=== PATIENT | female | born 1980 | race Caucasian/White ===

== ENCOUNTER → 2017-07-01 | Outpatient (CLI) | payer OTHER | END | disposition home or self-care (01) | LOC: MRI 09:49 | DX: D35.2 Benign neoplasm of pituitary gland (principal) | CPT/HCPCS: 70552 ==

== ENCOUNTER 2019-01-11 11:30 | Outpatient (CLI) | payer OTHER | END 2019-01-11 11:40 | disposition home or self-care (01) | LOC: LAB 11:30 | DX: M19.041 Primary osteoarthritis, right hand (principal); M19.042 Primary osteoarthritis, left hand ==

== ENCOUNTER 2021-03-19 10:19 | Outpatient (CLI) | payer OTHER | END 2021-03-19 10:24 | disposition home or self-care (01) | LOC: MAMO-SONO 10:19 | PROVIDERS: ATTEND Obstetrics & Gynecology Reproductive Endocrinology | DX: N64.4 Mastodynia (principal) ==

== ENCOUNTER 2021-05-30 13:21 | Outpatient (CLI) | payer OTHER ==
[2021-06-03] MEDS ORDERED: AYGESTIN5 MG PO (10:08)
== END 2021-05-31 16:21 | disposition home or self-care (01) ==
LOC: RAD 13:21
PROVIDERS: ATTEND Obstetrics & Gynecology Gynecology
DX: R05.9 Cough, unspecified (principal)

== ENCOUNTER 2021-06-05 06:05 | Day surgery (SDC) | payer OTHER ==
[~2021-06-05] VITALS: Ht 162.6 cm; Wt 50.8 kg
[~2021-06-05 06:05] MED LIST: AYGESTIN5 MG PO
== END 2021-06-05 22:40 | disposition home or self-care (01) ==
LOC: CIR.AMB 06:05
PROVIDERS: ATTEND Obstetrics & Gynecology Gynecology
DX: N84.0 Polyp of corpus uteri (principal); N80.2 Endometriosis of fallopian tube; N80.1 Endometriosis of ovary; Z30.2 Encounter for sterilization; G43.909 Migraine, unspecified, not intractable, without status migrainosus

== ENCOUNTER 2021-11-08 16:37 | Emergency (ER) | payer OTHER ==
[~2021-11-08] VITALS: Ht 162.6 cm; Wt 52.2 kg
[2021-11-08] MEDS ORDERED: ACIDO FOLICO (17:38)
== END 2021-11-08 23:58 | disposition home or self-care (01) ==
LOC: ER 16:37
DX: K57.92 Diverticulitis of intestine, part unspecified, without perforation or abscess without bleeding (principal); R10.31 Right lower quadrant pain

== ENCOUNTER 2023-12-24 09:38 | Outpatient (CLI) | payer OTHER ==
[~2023-12-24 09:38] MED LIST changes: +ACIDO FOLICO
== END 2023-12-24 09:44 | disposition home or self-care (01) ==
LOC: RAD 09:38
DX: M79.672 Pain in left foot (principal); M79.671 Pain in right foot

== ENCOUNTER 2024-05-02 13:34 | Emergency (ER) | payer OTHER ==
[~2024-05-02] VITALS: Ht 160 cm; Wt 55.8 kg
[2024-05-02 14:21] VITALS: BP 105/72; O2SAT 100
[2024-05-02] MEDS ORDERED: MAG HYDROX/ALUMINUM HYD/SIMETH 30 ML BLIST.PACK PO ONE ×2 (15:15→15:20)
[2024-05-02] MEDS ORDERED: GUAIFENESIN/DEXTROMETHORPHAN 10ML BLIST.PACK PO ONE ×2 (15:15→15:20)
[2024-05-02] MEDS ORDERED: LIDOCAINE HCL VISCOUS 20MG/ML BLIST 15ML MM ONE ×2 (15:15→15:20)
[2024-05-02 15:47] LABS: HEMATOCRIT 41.9 % (36.0-45.00); HEMOGLOBIN 14.3 g/dL (12.0-15.00); MEAN CELL VOLUME 92.9 fL (80.00-100.00); MEAN CORPUSCULAR HEMOGLOBIN 31.7 pg (27.00-32.0); MEAN CORPUSCULAR HGB CONC 34.1 g/dl (32.0-36.0); PLATELET COUNT 289 K/uL (150-450); RED BLOOD COUNT 4.51 M/uL (4.00-6.00); RED CELL DISTRIBUTION WIDTH 13.1 % (11.5-14.5)
[2024-05-02 16:38] LABS: ALBUMIN 3.5 gm/dL (3.4-5.0); BILIRUBIN TOTAL 0.3 mg/dL (0.3-1.2); CALCIUM 8.9 mg/dL (8.5-10.1); CREATININE SERUM 0.56 mg/dL (0.55-1.02); GFR 118.15; GLOBULINA 3.7 G/DL (2.4-3.5); POTASSIUM 5.1 mEq/L (3.5-5.1); TOTAL PROTEIN 7.2 gm/dL (6.4-8.2)
[2024-05-02] MEDS ORDERED: OSELTAMIVIR PHOSPHATE 75 MG CAPSULE PO ONE ×2 (16:42→16:45)
[2024-05-02] MEDS ORDERED: OSEL75CA PO (17:13)
[2024-05-02] MEDS ORDERED: MUCINEX FAST-M180 M2 PO (17:13)
[2024-05-02] MEDS ORDERED: COUGH DROPS1 EACH MM (17:13)
== END 2024-05-02 17:42 ==
LOC: ER 13:37
PROVIDERS: General Practice
DX: R53.81 Other malaise (principal); J10.1 Influenza due to other identified influenza virus with other respiratory manifestations; Z20.822 Contact with and (suspected) exposure to COVID-19

== ENCOUNTER 2025-01-28 18:33 | Emergency (ER) | payer OTHER ==
[~2025-01-28] VITALS: Ht 165.1 cm; Wt 61.2 kg
[~2025-01-28 18:33] MED LIST changes: +COUGH DROPS1 EACH MM; +MUCINEX FAST-M180 M2 PO; +OSEL75CA PO
[2025-01-28 20:44] LABS: BASO % 0.6 % (0.1-1.2); EOS # 0.08 (0.04-0.54); EOS % 1.0 % (0.7-7.0); LYMPH # 1.65 (1.18-3.74); LYMPH % 20.5 % (19.3-53.1); MEAN PLATELET VOLUME 10.60 fl (9.4-12.4); MONO # 0.70 (0.24-0.82); MONO % 8.7 % (4.7-12.5); NEUT # 5.53 (1.56-6.13); NEUT % 69.0 % (34.0-71.1); RED CELL DISTRIBUTION WIDTH 13.2 % (11.6-14.4)
[2025-01-28 22:43] LABS: URINE APPEARANCE Clear; URINE BILIRRUBIN Negative (NEGATIVE); URINE BLOOD Large; URINE COLOR Yellow; URINE GLUCOSE Negative (NEGATIVE); URINE KETONE Negative (NEGATIVE); URINE LEUKOCYTE Negative; URINE NITRATE Negative; URINE PROTEIN Negative (NEGATIVE); URINE UROBILINOGEN 0.2 E.U./dl
[2025-01-28 22:47] LABS: URINE BACTERIA 62.3 uL (0.0-1933); URINE EPITHELIAL CELLS 4.6 uL (0.0-38.8); URINE RBC 165.5 uL (0.0-20.8)
[2025-01-28 22:57] LABS: URINE CAST 0.00 uL (0.0-1.40); URINE WBC 1.5 uL (0.0-23.2)
== END 2025-01-28 23:44 ==
LOC: ER 18:33
PROVIDERS: General Practice
DX: O20.9 Hemorrhage in early pregnancy, unspecified (principal); Z3A.15 15 weeks gestation of pregnancy